=== PATIENT | male | born 1965 | race African-American/Black ===

== ENCOUNTER 2017-07-15 10:41 | Emergency (ER) | payer MEDICARE, MEDICAID ==
[~2017-07-15] VITALS: Ht 167.6 cm; Wt 86.0 kg
[2017-07-15 10:53] VITALS: BP 136/95
[2017-07-15] MEDS ORDERED: TETANUS, DIPHTHERIA, PERTUSSIS VAC/PF 0.5ML (>7YR OLD) IM ONE (13:15)
== END 2017-07-15 13:56 | disposition home or self-care (01) ==
LOC: ER 11:05
DX: S61.451A Open bite of right hand, initial encounter (principal); S81.851A Open bite, right lower leg, initial encounter; J45.909 Unspecified asthma, uncomplicated; K50.90 Crohn's disease, unspecified, without complications; F12.10 Cannabis abuse, uncomplicated; Z91.013 Allergy to seafood; Z88.0 Allergy status to penicillin; W54.0XXA Bitten by dog, initial encounter; Y93.89 Activity, other specified; Y92.89 Other specified places as the place of occurrence of the external cause
CPT/HCPCS: 90471; 90715; 99283

== ENCOUNTER 2023-03-02 19:09 | Emergency (ER) | payer MEDICARE, MEDICAID ==
[~2023-03-02] VITALS: Ht 167.6 cm; Wt 76.4 kg
[2023-03-02] MEDS ORDERED: FAMOTIDINE 20MG/2ML VIAL IV ONE (19:30)
[2023-03-02] MEDS ORDERED: FAMOTIDINE 20MG/2ML VIAL IV NR (19:30)
[2023-03-02] MEDS ORDERED: METHYLPREDNISOLONE SOD SUCC 125MG/2ML (ACT-O-VIAL) IV ONE (19:30)
[2023-03-02] MEDS ORDERED: DIPHENHYDRAMINE 50MG/ML VIAL IV NR (19:30)
[2023-03-02] MEDS ORDERED: DIPHENHYDRAMINE 50MG/ML VIAL IV ONE (19:30)
[2023-03-02] MEDS ORDERED: METHYLPREDNISOLONE SOD SUCC 125MG/2ML (ACT-O-VIAL) IV NR (19:30)
[2023-03-02 20:16] VITALS: BP 162/103; PULSE 74; RESP 18; TEMP 98.8; O2SAT 99
[2023-03-02] MEDS ORDERED: DIPH25CA83 PO (21:48)
[2023-03-02] MEDS ORDERED: EPIN0.3P3 IM (22:00)
== END 2023-03-02 23:05 | disposition home or self-care (01) ==
LOC: ER 19:09
DX: T78.1XXA Other adverse food reactions, not elsewhere classified, initial encounter (principal); J45.909 Unspecified asthma, uncomplicated; F12.10 Cannabis abuse, uncomplicated; X58.XXXA Exposure to other specified factors, initial encounter
CPT/HCPCS: 99284; 96374; 96375; J1200; J3490; J2930

== ENCOUNTER 2024-10-24 14:45 | Emergency (ER) | payer MEDICARE, MEDICAID ==
[~2024-10-24] VITALS: Ht 170.2 cm; Wt 91.0 kg
[~2024-10-24 14:45] MED LIST: DIPH25CA83 PO; EPIN0.3P3 IM
[2024-10-24 14:54] VITALS: TEMP 36.6; O2SAT 100
[2024-10-24 15:20] VITALS: BP 186/111; PULSE 74; RESP 16; O2SAT 100
[2024-10-24 15:30] LABS: BASOPHILS % 0.8 % (0.0-2.0); EOSINOPHILS % 0.6 % (0.0-5.0); HEMATOCRIT. 39.9 % (42.0-52.0); LYMPHOCYTES % 17.9 % (20.0-50.0); MEAN CORPUSCULAR HEMOGLOBIN 27.2 pg (28.0-32.0); MEAN CORPUSCULAR HGB CONC 32.6 g/dL (31.0-37.0); MEAN CORPUSCULAR VOLUME 83.2 fL (80.0-94.0); MEAN PLATELET VOLUME 8.3 fl (7.4-10.4); MONOCYTES % 10.5 % (2.0-8.0); NEUTROPHILS % 70.2 % (40.0-76.0); PLATELET 263 x1000/uL (130-400); RED BLOOD CELL COUNT 4.79 mill/uL (4.7-6.1); RED CELL DISTRIBUTION WIDTH 15.6 % (11.6-14.6); WHITE BLOOD COUNT 4.4 x1000/uL (4.5-11.0)
[2024-10-24 15:38] LABS: CHLORIDE 105 mEq/L (98-107); SODIUM 140 mEq/L (136-145)
[2024-10-24 15:40] LABS: CALCIUM 9.1 mg/dL (8.7-10.4); CARBON DIOXIDE 25 mEq/L (21-32)
[2024-10-24 15:45] LABS: GLUCOSE 102 mg/dL (70-105); UREA NITROGEN BLOOD 14 mg/dL (9-23)
[2024-10-24 15:47] LABS: ALANINE AMINOTRANSFERASE 11 IU/L (10-49); ALBUMIN 4.6 g/dL (3.2-4.8); ASPARTATE AMINOTRANSFERASE 13 IU/L (<34); BILIRUBIN TOTAL 0.3 mg/dL (0.1-1.0); PROTEIN TOTAL 7.4 g/dL (6.0-8.3)
== END 2024-10-24 16:09 | disposition home or self-care (01) ==
LOC: ER 14:45
DX: I10 Essential (primary) hypertension (principal); E11.9 Type 2 diabetes mellitus without complications; F12.90 Cannabis use, unspecified, uncomplicated; Z85.47 Personal history of malignant neoplasm of testis; Z88.0 Allergy status to penicillin
CPT/HCPCS: 36415; 80053; 85025; 99283